=== PATIENT | female | born 1970 | race Caucasian/White ===

== ENCOUNTER 2019-04-10 16:11 | Emergency (ER) | payer OTHER ==
--- NOTE | 2019-04-10 16:28 | PDOC ---
Rapid Medical Evaluation Chief Complaint: Ingrown toenail Time Seen by Provider: 04/10/19 16:26 Medical Evaluation: Allergies Allergy/AdvReac Type Severity Reaction Status Date / Time No Known Allergies Allergy Verified 04/10/19 16:27 04/10/19 16:27 I have performed a brief in-person evaluation of this patient. The patient presents with a chief complaint of: right great toe pain / swelling Pertinent physical exam findings: pain/ limp I have ordered the following: Xray great toe=right The patient will proceed to the ED for further evaluation. Discharge Disposition - Diagnosis Pain - Referrals - Patient Instructions - Post Discharge Activity
[2019-04-10 16:30] VITALS: BP 97/75; PULSE 97; TEMP 98.6; BMI 35.2
[2019-04-10] MEDS ORDERED: IBUPROFEN 400 MG TABLET (FP) PO ONE ×2 (17:08→17:10)
--- NOTE | 2019-04-10 18:04 | PDOC ---
History of Present Illness - General Chief Complaint: Ingrown toenail Stated Complaint: FOOT PAIN Time Seen by Provider: 04/10/19 16:26 History Source: Patient - History of Present Illness Occurred: reports: other (3 days ago) Lower Extremity Pain Location: right: 1st toe Past History - Past Medical History Allergies/Adverse Reactions: Allergies Allergy/AdvReac Type Severity Reaction Status Date / Time No Known Allergies Allergy Verified 04/10/19 17:04 Home Medications: Ambulatory Orders Cephalexin [Keflex] 500 mg PO Q6H #28 capsule 04/10/19 Ibuprofen [Motrin -] 800 mg PO Q6H #30 tablet 04/10/19 - Suicide/Smoking/Psychosocial Hx Smoking History: Current every day smoker Number of Cigarettes Smoked Daily: 10 Information on smoking cessation initiated: No Hx Alcohol Use: No Drug/Substance Use Hx: No Review of Systems - Review of Systems Constitutional: No: Chills, Fever *Physical Exam - Vital Signs Last Vital Signs Temp Pulse Resp BP Pulse Ox 98.6 F 97 H 16 97/75 99 04/10/19 16:27 04/10/19 16:27 04/10/19 16:27 04/10/19 16:27 04/10/19 16:27 - Physical Exam General Appearance: Yes: Appropriately Dressed, Mild Distress HEENT: positive: Normal Voice Neck: positive: Supple Respiratory/Chest: negative: Respiratory Distress Extremity: positive: Other (ingrown nail to R great toe w/ erythema and ttp to distal aspect of toe, no obvious paronychia) Integumentary: positive: Dry, Warm Neurologic: positive: Fully Oriented, Alert, Normal Mood/Affect Procedures - Additional Procedures Progress: 04/10/19 18:24 R great toe paronychia: digital block w/ ~6 cc lido, no epi Partial nail excision using needle emergency medical technician/driver and blade Local wound care w/ bacitracin/xeroform/gauze bandage ED Treatment Course - Medications Given in the ED: ED Medications Discontinued Medications Generic Name Dose Route Start Last Admin Trade Name Freq PRN Reason Stop Dose Admin Ibuprofen 800 mg 04/10/19 17:08 04/10/19 17:11 Motrin - PO 04/10/19 17:09 800 mg ONCE ONE Administration Medical Decision Making - Medical Decision Making 04/10/19 17:46 48-year-old female denies past medical history here with ingrown toenail to right great toe with pain, redness and swelling now. No discharge or fever. No recent trauma See exam Ingrown toenail w/ ?early paronychia S/p partial nail excision w/minimal pus visualized during procedure, no induration/area of fluctuance to I&D -tetanus UTD -dc w/ abx, pain control -wound check in 2 days *DC/Admit/Observation/Transfer Diagnosis at time of Disposition: Ingrown nail - Discharge Dispostion Disposition: HOME Condition at time of disposition: Improved - Prescriptions Prescriptions: Cephalexin [Keflex] 500 mg PO Q6H #28 capsule Ibuprofen [Motrin -] 800 mg PO Q6H #30 tablet - Referrals Referrals: Facundo Hampton [Primary Care Provider] - - Patient Instructions Printed Discharge Instructions: DI for Ingrown Toenail Removal Additional Instructions: Usted tuvo bhavesh parte de la ua que entra en ren piel y est causando bhavesh infeccin. La porcin de la ua se retir en la ED. Por favor, mantenga la herida limpia y seca sinan los prximos 2 ortega. Despus de eso puede mojarse la herida, emery mantngase cubierto hasta que se forme bhavesh costra. Por favor, tome los medicamentos segn las indicaciones y devulvalos a la dorina de emergencias en 2 ortega para la revisin de la herida Print Language: ANGOLAN - Post Discharge Activity
== END 2019-04-10 18:26 | disposition home or self-care (01) ==
LOC: JERFT 16:11
PROC: 0HBRXZZ Excision of Toe Nail, External Approach (ICD-10-PCS; principal; 2019-04-10)
DX: L60.0 Ingrowing nail (principal)
CPT/HCPCS: 11765; 73660-TC-FY; 99281-25

== ENCOUNTER 2022-12-23 16:01 | Day surgery (SDC) | payer OTHER, BC ==
[2022-12-23 16:05] VITALS: BMI 29.2
[2022-12-23] MEDS ORDERED: MAG HYDROX/AL HYDROX/SIMETH -MYLANTA- ORAL SUSPENSION PO ONE (16:42)
[2022-12-23] MEDS ORDERED: ONDANSETRON 4 MG/2 ML VIAL IVPUSH ONE (16:43)
[2022-12-23] MEDS ORDERED: SODIUM CHLORIDE 0.9% 500 ML INFUS.BAG IV ONE (16:43)
[2022-12-23] MEDS ORDERED: ACETAMINOPHEN 1000 MG/100 ML BAG IVPB ONE (16:43)
[2022-12-23 17:18] LABS: BASO % 0.5 % (0-2.0); HEMATOCRIT 44.1 % (32.4-45.2); HEMOGLOBIN 14.6 GM/dL (10.7-15.3); LYMPH % 5.2 % (8-40); MCH 29.7 pg (25.7-33.7); MCHC 33.2 g/dl (32.0-36.0); MEAN CELL VOLUME 89.6 fl (80-96); MEAN PLT VOLUME 7.4 fl (7.5-11.1); MONO % 2.9 % (3.8-10.2); NEUT % 91.4 % (42.8-82.8); PLATELET COUNT 424 10^3/uL (134-434); RBC 4.92 M/mm3 (3.60-5.2); RDW 14.3 % (11.6-15.6); WHITE BLOOD COUNT 23.2 K/mm3 (4.0-10.0)
[2022-12-23 17:34] LABS: CALCIUM 9.3 mg/dL (8.5-10.1)
[2022-12-23 17:35] LABS: ALBUMIN 3.9 g/dl (3.4-5.0)
[2022-12-23 17:38] LABS: CREATININE 0.6 mg/dL (0.55-1.3)
[2022-12-23] MEDS ORDERED: ONDANSETRON 4 MG/2 ML VIAL ONE (17:38)
[2022-12-23] MEDS ORDERED: ACETAMINOPHEN INJECTION 100 ML IVPB ONE (17:38)
[2022-12-23 17:39] LABS: BILIRUBIN,TOTAL 0.5 mg/dL (0.2-1); TOT PROT 7.5 g/dl (6.4-8.2)
[2022-12-23] MEDS ORDERED: MAG HYDROX/AL HYDROX/SIMETH 30 ML UNIT-DOSE CUP ONE (17:39)
[2022-12-23 17:57] LABS: ANISOCYTOSIS 1+; MACROCYTOSIS 0
[2022-12-23 18:10] LABS: HCG,QUALITATIVE URINE Negative
[2022-12-23 18:15] LABS: EPI CELLS 36 /uL (0-25.1); HYALINE CASTS 1 /uL (0-3.1); URINE APPEARANCE CLEAR; URINE BACTERIA 343 /uL (0-1359); URINE BILIRUBIN NEGATIVE (NEGATIVE); URINE COLOR YELLOW; URINE GLUCOSE (UA) NEGATIVE (NEGATIVE); URINE KETONE 2+ (NEGATIVE); URINE LEUK ESTERASE NEGATIVE (NEGATIVE); URINE NITRITE NEGATIVE (NEGATIVE); URINE PROTEIN NEGATIVE (NEGATIVE); URINE RBC 17 /uL (0-23.9); URINE UROBILINOGEN 0.2 mg/dL (0.2-1.0); URINE WBC 10 /uL (0-25.8)
[2022-12-23] MEDS ORDERED: PIPERACILLIN/TAZOB 4.5 GM 4.5 GM in DEXTROSE 5%-WATER 100 ML IVPB ONE (21:48)
[2022-12-23] MEDS ORDERED: KETOROLAC TROMETHAMINE 30 MG/1 ML VIAL IVPUSH ONE (22:02)
[2022-12-23] MEDS ORDERED: KETOROLAC TROMETHAMINE 30 MG/1 ML VIAL ONE (22:11)
[2022-12-23] MEDS ORDERED: PIPERACILLIN/TAZOB 4.5 GM 4.5 GM/100 ML BAG IVPB ONE (22:11)
[2022-12-23 23:24] LABS: EOS % 0.1 % (0-4.5); HEMOGLOBIN 13.3 GM/dL (10.7-15.3); MCH 29.9 pg (25.7-33.7)
[2022-12-23 23:29] LABS: BASO % 0.7 % (0-2.0); HEMATOCRIT 40.3 % (32.4-45.2); LYMPH % 11.8 % (8-40); MEAN CELL VOLUME 90.5 fl (80-96); MEAN PLT VOLUME 6.7 fl (7.5-11.1); MONO % 6.4 % (3.8-10.2); PLATELET COUNT 385 10^3/uL (134-434); RBC 4.45 M/mm3 (3.60-5.2); RDW 14.3 % (11.6-15.6)
[2022-12-23 23:35] LABS: INR 1.08 (0.83-1.09); PROTHROMBIN TIME (PATIENT) 12.4 SEC (9.7-13.0)
[2022-12-24] MEDS ORDERED: ACETAMINOPHEN 1000 MG/100 ML BAG IVPB PRN (00:01)
[2022-12-24 01:20] LABS: ANISOCYTOSIS 3+; MACROCYTOSIS 0
[2022-12-24] MEDS: INSULIN SLIDING SCALE (NOVOLOG) 1 VIAL SQ SCH (07:16)
[2022-12-24 07:21] LABS: BASO % 0.3 % (0-2.0); EOS % 0.6 % (0-4.5); HEMATOCRIT 37.8 % (32.4-45.2); HEMOGLOBIN 12.6 GM/dL (10.7-15.3); LYMPH % 15.6 % (8-40); MCH 30.1 pg (25.7-33.7); MCHC 33.3 g/dl (32.0-36.0); MEAN CELL VOLUME 90.6 fl (80-96); MEAN PLT VOLUME 7.3 fl (7.5-11.1); MONO % 9.3 % (3.8-10.2); NEUT % 74.2 % (42.8-82.8); PLATELET COUNT 369 10^3/uL (134-434); RBC 4.18 M/mm3 (3.60-5.2); RDW 14.2 % (11.6-15.6); WHITE BLOOD COUNT 15.3 K/mm3 (4.0-10.0)
[2022-12-24 07:42] LABS: CALCIUM 8.5 mg/dL (8.5-10.1); MAGNESIUM 2.2 mg/dL (1.8-2.4)
[2022-12-24 07:44] LABS: CREATININE 0.6 mg/dL (0.55-1.3)
[2022-12-24 07:45] LABS: PHOSPHOROUS 2.6 mg/dL (2.5-4.9)
[2022-12-24 07:46] LABS: BILIRUBIN,TOTAL 0.8 mg/dL (0.2-1); TOT PROT 5.9 g/dl (6.4-8.2)
[2022-12-24] MEDS ORDERED: BUPIVACAINE HCL/PF 0.5% (5MG/ML) 10 ML VIAL ONE (07:47)
[2022-12-24] MEDS ORDERED: PROMETHAZINE HCL 25 MG/1 ML VIAL IVPUSH PRN (08:54)
[2022-12-24] MEDS ORDERED: ONDANSETRON 4 MG/2 ML VIAL IVPUSH PRN ×2 (08:54→12:55)
[2022-12-24] MEDS ORDERED: LACTATED RINGERS SOLUTION 1,000 ML IV SCH (09:00)
[2022-12-24] MEDS ORDERED: PROPOFOL 20 ML ONE ×2 (09:18→10:50)
[2022-12-24] MEDS ORDERED: MIDAZOLAM HCL 2 MG/2 ML SINGLE DOSE VIAL ONE (09:18)
[2022-12-24] MEDS ORDERED: ROCURONIUM BROMIDE 50 MG/5 ML SYRINGE ONE (09:18)
[2022-12-24] MEDS ORDERED: PIPERACILLIN/TAZOBACTAM 3.375 GM VIAL IVPB ONE ×3 (09:59→10:11)
[2022-12-24] MEDS ORDERED: ONDANSETRON 4 MG/2 ML VIAL ONE (10:11)
[2022-12-24] MEDS ORDERED: BUPIVACAINE HCL/PF 0.5% (5MG/ML) 10 ML VIAL NR ONE ×2 (10:30)
[2022-12-24] MEDS ORDERED: ACETAMINOPHEN INJECTION 100 ML IVPB ONE (10:51)
[2022-12-24] MEDS ORDERED: GLYCOPYRROLATE 0.2 MG/1 ML VIAL ONE ×2 (11:05→11:19)
[2022-12-24] MEDS ORDERED: NEOSTIGMINE METHYLSULFATE 0.5 MG/1 ML - 10 ML MDV ONE (11:06)
[2022-12-24] MEDS ORDERED: oxyCODONE HCL 5 MG TABLET PO PRN (12:55)
[2022-12-24] MEDS: LACTATED RINGERS SOLUTION 1,000 ML IV SCH (14:51)
[2022-12-24] MEDS: PIPERACILLIN/TAZOB 3.375 GM 3.375 GM in DEXTROSE 5%-WATER - 50 ML IVPB SCH (18:05)
[2022-12-24] MEDS ORDERED: KETOROLAC TROMETHAMINE 30 MG/1 ML VIAL IVPUSH PRN (20:00)
[2022-12-24] MEDS: ACETAMINOPHEN 1000 MG/100 ML BAG IVPB SCH (20:35)
[2022-12-25] MEDS: INSULIN SLIDING SCALE (NOVOLOG) 1 VIAL SQ SCH (00:24)
[2022-12-25] MEDS: PIPERACILLIN/TAZOB 3.375 GM 3.375 GM in DEXTROSE 5%-WATER - 50 ML IVPB SCH ×2 (01:56→09:27)
[2022-12-25] MEDS: ACETAMINOPHEN 1000 MG/100 ML BAG IVPB SCH (04:17)
[2022-12-25] MEDS: LACTATED RINGERS SOLUTION 1,000 ML IV SCH ×2 (05:23→14:40)
[2022-12-25 10:39] LABS: BASO % 0.6 % (0-2.0); EOS % 1.1 % (0-4.5); HEMATOCRIT 34.9 % (32.4-45.2); HEMOGLOBIN 11.7 GM/dL (10.7-15.3); MCH 30.3 pg (25.7-33.7); MCHC 33.4 g/dl (32.0-36.0); MEAN CELL VOLUME 90.9 fl (80-96); MEAN PLT VOLUME 8.2 fl (7.5-11.1); MONO % 3.7 % (3.8-10.2); NEUT % 74.6 % (42.8-82.8); PLATELET COUNT 344 10^3/uL (134-434); RBC 3.84 M/mm3 (3.60-5.2); RDW 14.4 % (11.6-15.6); WHITE BLOOD COUNT 11.4 K/mm3 (4.0-10.0)
[2022-12-25 10:56] VITALS: BP 103/56; PULSE 84; RESP 20; TEMP 98
[2022-12-25 10:58] LABS: ALBUMIN 2.8 g/dl (3.4-5.0); BLOOD UREA NITROGEN 7.7 mg/dL (7-18); CALCIUM 8.5 mg/dL (8.5-10.1)
[2022-12-25 11:02] LABS: BILIRUBIN,TOTAL 0.5 mg/dL (0.2-1); CREATININE 0.7 mg/dL (0.55-1.3)
[2022-12-25 11:03] LABS: TOT PROT 5.7 g/dl (6.4-8.2)
== END 2022-12-25 15:30 | disposition home or self-care (01) ==
LOC: JER 16:01 → UNDOADMOB 22:58 → JERBED 22:58 → INTOOBSV 23:59 → OBSVTOIN 23:59 → JASUSAT 12-24 13:57 → SUATTDRO 12-24 13:57 → J8W 12-24 18:36 → JASUSAT 12-25 15:30
PROVIDERS: ATTEND Nurse Practitioner Family
PROC: 0DTJ4ZZ Resection of Appendix, Percutaneous Endoscopic Approach (ICD-10-PCS; principal; 2022-12-24 13:30)
DX: K35.890 Other acute appendicitis without perforation or gangrene (principal)
CPT/HCPCS: 0241U-QW; 36415; 74177-TC; 80053; 81003; 83036; 83690; 83735; 84100; 84703; 85025; 85610; 85730; 86850; 86900; 86901; 87070; 87075; 87086; 87205; 88304-TC; 93005; 93010; 94760; 99285-25; Q9967

== ENCOUNTER 2023-12-25 09:23 | Emergency (ER) | payer OTHER, BC ==
[2023-12-25 10:02] VITALS: BP 118/82; PULSE 64; RESP 14; TEMP 98.4; BMI 31.0
== END 2023-12-25 11:05 | disposition home or self-care (01) ==
LOC: JERFT 09:23
PROC: 0HQQXZZ Repair Finger Nail, External Approach (ICD-10-PCS; principal; 2023-12-25)
DX: M79.675 Pain in left toe(s) (principal); L60.0 Ingrowing nail
CPT/HCPCS: 99283-25

== ENCOUNTER 2025-03-18 13:52 | Emergency (ER) | payer OTHER, BC ==
[2025-03-18] MEDS ORDERED: TETRACAINE 0.5% OPHTH SOLN 2 ML BOTTLE ONE (14:41)
[2025-03-18] MEDS ORDERED: FLUORESCEIN NA 1 EA STRIP ONE (14:41)
[2025-03-18] MEDS: FLUORESCEIN NA 1 EA STRIP OU ONE (14:53)
[2025-03-18] MEDS: TETRACAINE 0.5% HCL 0.6ML DROPPER.BOTTLE OU ONE (14:54)
[2025-03-18 14:57] VITALS: BP 138/93; PULSE 78; RESP 16; TEMP 98.1; BMI 31.2
== END 2025-03-18 15:15 | disposition home or self-care (01) ==
LOC: JERFT 13:52
DX: H10.9 Unspecified conjunctivitis (principal)
CPT/HCPCS: 99283-25